=== PATIENT | female | born 1945 | race Hispanic/Latino ===

== ENCOUNTER 2017-12-24 11:25 | Emergency (ER) | payer SELFPAY ==
[~2017-12-24] VITALS: Ht 152.4 cm; Wt 49.9 kg
[2017-12-24] MEDS ORDERED: LISINOPRIL10 MG PO (11:49)
[2017-12-24] MEDS ORDERED: AMLODIPINE BESYL5 MG PO (11:49)
[2017-12-24] MEDS ORDERED: METFORMIN HCL1000 MG PO (11:49)
[2017-12-24] MEDS ORDERED: LISINOPRIL 10 MG TAB PO ONE (12:15)
[2017-12-24 12:22] LABS: BASOPHILS # (AUTO) 0.1 (0.0-0.1); BASOPHILS % 0.6 % (0.0-1.0); EOSINOPHILS # (AUTO) 0.1 (0.0-0.4); EOSINOPHILS % 1.8 % (0.0-6.0); HEMATOCRIT 42.4 % (34.2-44.1); HEMOGLOBIN 14.2 g/dL (12.0-16.0); LYMPHOCYTES # (AUTO) 2.2 (1.0-3.2); LYMPHOCYTES % 28.2 % (18.0-39.1); MEAN CORPUSCULAR HEMOGLOBIN 29.5 pg (28-32); MEAN CORPUSCULAR HGB CONC 33.5 g/dL (31-35); MONOCYTES # (AUTO) 0.5 (0.2-0.8); MONOCYTES % 6.3 % (4.4-11.3); NEUTROPHILS # (AUTO) 4.9 (2.1-6.9); NEUTROPHILS % 62.8 % (38.7-80.0); PLATELET COUNT 297 x10e3/uL (140-360); RED BLOOD COUNT 4.82 x10e6/uL (3.6-5.1); RED CELL DISTRIBUTION WIDTH 12.4 % (11.7-14.4)
[2017-12-24] MEDS ORDERED: LISINOPRIL 10 MG TAB PO SCH (12:30)
[2017-12-24 12:33] LABS: ANION GAP 11.9 mmol/L (8-16); BLOOD UREA NITROGEN 24 mg/dL (7-26); BUN/CREATININE RATIO 32 (6-25); CALCIUM 9.7 mg/dL (8.4-10.2); CARBON DIOXIDE 29 mmol/L (22-29); CHLORIDE 101 mmol/L (98-107); CREATININE, SERUM 0.74 mg/dL (0.57-1.11); EST GLOMERULAR FILTRATION RATE > 60 ML/MIN (60-); GLUCOSE 181 mg/dL (74-118); POTASSIUM 3.9 mmol/L (3.5-5.1); SODIUM 138 mmol/L (136-145)
--- NOTE | 2017-12-24 13:57 | Diagnostic Imaging Report ---
PROCEDURE: X-RAY CHEST, TWO VIEWS COMPARISON: None. INDICATIONS: MEDICATION REFILL FINDINGS: The lungs are well-inflated. Biapical pleural-parenchymal scar left worse than right. No focal airspace consolidation, pleural effusion, or pneumothorax. Atherosclerotic calcification of the thoracic aorta. Normal heart size. No overt pulmonary edema. No acute osseous abnormality. CONCLUSION: No acute cardiopulmonary abnormality. Dictated by: John Santana M.D. on 12/24/2017 at 14:00 Electronically approved by: John Santana M.D. on 12/24/2017 at 14:00
[2017-12-24] MEDS ORDERED: SODIUM CHLORIDE 0.9% 1000ML 1,000 ML IV STA (13:58)
[2017-12-24 14:31] VITALS: BP 156/72
== END 2017-12-24 14:33 | disposition home or self-care (01) ==
LOC: ER 11:25
DX: E11.65 Type 2 diabetes mellitus with hyperglycemia (principal); I10 Essential (primary) hypertension; R05 Cough
CPT/HCPCS: 36415; 71046; 80048; 85025; 99284